=== PATIENT | male | born 1985 | race Caucasian/White ===

== ENCOUNTER → 2023-12-07 15:37 | Outpatient (REF) | payer BC, SELFPAY ==
[2023-12-07 17:23] LABS: ALT (SGPT) 20 U/L (0-50); AST (SGOT) 27 U/L (17-59); Alkaline Phosphatase 52 U/L (38-126); Blood Urea Nitrogen 21 mg/dl (9-20); Glucose 83 mg/dl (70-99); Potassium 4.2 mmol/L (3.5-5.1); Sodium 140 mmol/L (135-145); Total Bilirubin 0.4 mg/dl (0.2-1.3)
[2023-12-07 17:33] LABS: Albumin 4.7 g/dl (3.5-5.0); Carbon Dioxide 27 mmol/L (22-30); Chloride 103 mmol/L (98-107); eGFR > 60.00
[2023-12-07 17:46] LABS: D-Dimer 1.71 ug/mlFEU (0.00-0.50)
== END ==
LOC: RAD 15:37
PROVIDERS: ATTENDING PHYSICIAN Physician Assistant
DX: R07.81 Pleurodynia (principal)
CPT/HCPCS: 36415; 71046; 80053; 85379

== ENCOUNTER → 2023-12-08 10:57 | Outpatient (REF) | payer BC, SELFPAY | LOC: RAD 10:57 | PROVIDERS: ATTENDING PHYSICIAN Physician Assistant | DX: R07.81 Pleurodynia (principal); R89.9 Unspecified abnormal finding in specimens from other organs, systems and tissues | CPT/HCPCS: 71275; Q9967 ==